=== PATIENT | female | born 1980 | race Caucasian/White ===

== ENCOUNTER 2025-03-19 03:56 | Emergency (ER) | payer OTHER ==
[~2025-03-19] VITALS: Ht 167.6 cm; Wt 65.7 kg
[2025-03-19 05:05] LABS: BASO # 0.0 10^3/uL (0.0-0.2); BASO % 0.8 % (0.0-1.0); EOS # 0.1 10^3/uL (0.0-0.5); EOS % 2.0 % (0.0-3.0); LYMPH # 2.1 10^3/uL (1.5-5.0); LYMPH % 41.2 % (24.0-44.0); MONO # 0.4 10^3/uL (0.0-0.8); MONO % 8.4 % (2.0-8.0); NEUTROPHILS # 2.4 10^3/uL (1.5-8.5); NEUTROPHILS % 47.4 % (36.0-66.0); PLATELET COUNT, AUTOMATED 267 10^3/uL (150-450)
[2025-03-19 05:08] LABS: KETONE, URINE AUTO RFX NEGATIVE (NEGATIVE); LEUKOCYTE ESTERASE UR AUTO RFX NEGATIVE (NEGATIVE); NITRITE, URINE AUTO RFX NEGATIVE (NEGATIVE); RBC, URINE AUTO RFX 0 /HPF (0-3); SQUAM EPITHELIAL CELL UR AURFX 3 /HPF (0-6); WBC, URINE AUTO RFX 0 /HPF (0-3)
[2025-03-19 05:20] LABS: ALT/SGPT 16 U/L (7.0-40); AST/SGOT 17 U/L (<34); CALCIUM LEVEL 9.5 MG/DL (8.5-10.1); CARBON DIOXIDE LEVEL 29 MMOL/L (20-31); CHLORIDE LEVEL 104 MMOL/L (98-107); CREATININE FOR GFR 0.87 MG/DL (0.55-1.30); GLOMERULAR FILTRATION RATE 85.3 (>58); POTASSIUM SERUM 4.1 MMOL/L (3.5-5.1); SODIUM LEVEL 142 MMOL/L (136-145)
[2025-03-19] MEDS: KETOROLAC 30 MG/ML 1 ML VIAL IV ONE (06:41)
[2025-03-19] MEDS: ONDANSETRON 4MG 2ML VIAL IV ONE (06:41)
[2025-03-19] MEDS ORDERED: ISOVUE-370 76% 100 ML VIAL As Ordered ONE (07:58)
[2025-03-19 09:45] VITALS: BP 109/70
[2025-03-19 09:50] VITALS: TEMP 98.9; O2SAT 99
== END 2025-03-19 10:10 | disposition home or self-care (01) ==
LOC: M ED 03:56
DX: K80.20 Calculus of gallbladder without cholecystitis without obstruction (principal); E03.9 Hypothyroidism, unspecified
CPT/HCPCS: 36415; 74177; 76705; 80048; 80076; 81001; 82150; 83605; 83690; 85025; 93005; 96374; 96375; 99284; J1885; J2405; Q9967

== ENCOUNTER 2025-04-07 12:09 | Emergency (ER) | payer OTHER ==
[~2025-04-07] VITALS: Ht 167.6 cm; Wt 65.6 kg
[2025-04-07] MEDS ORDERED: SYNT75TA PO (12:15)
[2025-04-07] MEDS: KETOROLAC 30 MG/ML 1 ML VIAL IV ONE (13:18)
[2025-04-07] MEDS: ONDANSETRON 4MG 2ML VIAL IV ONE (13:18)
[2025-04-07 13:40] LABS: BASO # 0.0 10^3/uL (0.0-0.2); BASO % 0.7 % (0.0-1.0); EOS # 0.1 10^3/uL (0.0-0.5); EOS % 1.4 % (0.0-3.0); LYMPH # 1.2 10^3/uL (1.5-5.0); LYMPH % 27.3 % (24.0-44.0); MONO # 0.3 10^3/uL (0.0-0.8); MONO % 7.4 % (2.0-8.0); NEUTROPHILS # 2.8 10^3/uL (1.5-8.5); NEUTROPHILS % 63.0 % (36.0-66.0); PLATELET COUNT, AUTOMATED 268 10^3/uL (150-450)
[2025-04-07 14:07] LABS: ALT/SGPT 17 U/L (7.0-40); AST/SGOT 17 U/L (<34); CALCIUM LEVEL 9.3 MG/DL (8.5-10.1); CARBON DIOXIDE LEVEL 26 MMOL/L (20-31); CHLORIDE LEVEL 106 MMOL/L (98-107); CREATININE FOR GFR 0.90 MG/DL (0.55-1.30); GLOMERULAR FILTRATION RATE 81.9 (>58); POTASSIUM SERUM 4.0 MMOL/L (3.5-5.1); SODIUM LEVEL 142 MMOL/L (136-145)
[2025-04-07] MEDS: PANTOPRAZOLE 40MG VIAL IV ONE (14:55)
[2025-04-07] MEDS ORDERED: ONDA-282 PO (15:06)
[2025-04-07] MEDS ORDERED: PROTPAK PO (15:10)
[2025-04-07] MEDS ORDERED: PROT1TAB2 PO (15:16)
[2025-04-07 15:18] VITALS: BP 124/59; TEMP 98.1; O2SAT 100
== END 2025-04-07 15:27 | disposition home or self-care (01) ==
LOC: M ED 12:09
DX: K80.20 Calculus of gallbladder without cholecystitis without obstruction (principal); E03.9 Hypothyroidism, unspecified; Z79.83 Long term (current) use of bisphosphonates; Z79.899 Other long term (current) drug therapy
CPT/HCPCS: 76705; 80048; 80076; 83605; 83690; 85025; 96374; 96375; 99284; J1885; J2405; J2470